=== PATIENT | female | born 1995 | race African-American/Black ===

== ENCOUNTER 2024-10-29 13:42 | Emergency (ER) | payer MEDICAID, OTHER ==
[~2024-10-29] VITALS: Ht 162.6 cm; Wt 100.0 kg
[2024-10-29 14:22] VITALS: TEMP 98.5
--- NOTE | 2024-10-29 14:30 | ED.PDOC ---
Musculoskeletal HPI Comments A 29 YEAR OLD FEMALE PRESENTS TO THE ED WITH CHIEF COMPLAINT OF KNEE PAIN. PATIENT REPORTS THAT SHE HAD ACCIDENTALLY OVER EXTENDED HER LEFT LEG WHEN STEPPING OUT OF A [employer]SPORTATION [employer] TODAY, CAUSING HER TO TWIST HER LEFT LEG. PATIENT RELAYS THAT SHE STARTED TO EXPERIENCE LEFT KNEE PAIN AFTER THIS AND HAS DIFFICULTY WALKING WITHOUT PAIN. PATIENT DENIES ANY NUMBNESS, WEAKNESS, FALL, INJURY, OR FURTHER SYMPTOMS. Chief Complaint: Lower Extremity Time Seen by MD: 14:28 Reviewed Notes: Nurses Notes, Medications, Allergies Allergies: Coded Allergies: NO KNOWN ALLERGIES (Unverified , 10/29/24) Home Meds Active Scripts Ibuprofen (Ibuprofen) 800 Mg Tab, 1 TAB PO TID, #30 TAB Prov:YULIANA MCLAUGHLIN 10/29/24 Information Source: Patient Mode of Arrival: Ambulatory Location: Left Extremity Location: Knee Timing: Hours Prehospital treatment: None Severity: Moderate Able to Move Extremity: Yes Bear Weight: Limited Pain: Moderate Mechanism: Hyperextension Circumstances: Accident Onset of Symptoms: Spontaneous Symptoms: Pain DVT Risk Factors: NONE Last Tetanus: Unknown Associated signs and symptoms: Knee pain Past Medical History PAST MEDICAL HISTORY: Denies Surgical History: Denies all surgeries DOUBLE BOTTOM DRIVER History: No Pertinent DOUBLE BOTTOM DRIVER History Family History Family History: Reviewed,noncontributory to illness Social History Smoker: Non-Smoker Alcohol: Denies ETOH Use Drugs: Denies Drug Use Lives In: Home Constitutional: denies: chills, diaphoresis, fatigue, fever, malaise, sweats, weakness, others EENTM: denies: blurred vision, double vision, ear bleeding, ear discharge, ear drainage, ear pain, ear ringing, eye pain, eye redness, hearing loss, mouth pain, mouth swelling, nasal discharge, nose bleeding, nose congestion, nose pain, photophobia, tearing, throat pain, throat swelling, voice changes, others Respiratory: denies: cough, hemoptysis, orthopnea, SOB at rest, shortness of breath, SOB with excertion, stridor, wheezing, others Cardiovascular: denies: chest pain, dizzy spells, diaphoresis, Dyspnea on exertion, edema, irregular heart beat, left arm pain, lightheadedness, palpitations, PND, syncope, others Gastrointestinal: denies: abdomen distended, abdominal pain, blood streaked bowels, constipated, diarrhea, dysphagia, difficulty swallowing, hematemesis, melena, nausea, poor appetite, poor fluid intake, rectal bleeding, rectal pain, vomiting, others Genitourinary: denies: abnormal vagina bleeding, burning, dyspareunia, dysuria, flank pain, frequency, hematuria, incontinence, pain, , vagina discharge, urgency, others Neurological: denies: dizziness, fainting, headache, left sided numbness, left sided weakness, numbness, paresthesia, pre-existing deficit, right sided numbness, right sided weakness, seizure, speech problems, tingling, tremors, weakness, others Musculoskeletal: reports: others (LEFT KNEE PAIN); denies: back pain, gout, joint pain, joint swelling, muscle pain, muscle stiffness, neck pain Integumetry: denies: bruises, change in color, change in hair/nails, dryness, laceration, lesions, lumps, rash, wounds, others Allergic/Immunocompromised: denies: Difficulty Healing, Frequent Infections, Hives, Itching, others Hematologic/Lymphatic: denies: anemia, blood clots, easy bleeding, easy bruising, swollen glands, others Endocrine: denies: excessive hunger, excessive sweating, excessive thirst, excessive urination, flushing, intolerance to cold, intolerance to heat, unexplained weight gain, unexplained weight loss, others Psychiatric: denies: anxiety, bipolar disorder, depression, hopeless, panic disorder, schizophrenia, sleepless, suicidal, others All Other Systems: Reviewed and Negative Physical Exam General Appearance: No Apparent Distress, Obese HEENT: Normal ENT Inspection, PERRL/EOMI Neck: Full Range of Motion, Non-Tender, Normal, Normal Inspection Respiratory: Chest Non-Tender, Lungs Clear, No Accessory Muscle Use, No Respiratory Distress, Normal Breath Sounds Cardiovascular: No Edema, No JVD, No Murmur, No Gallop, Normal Peripheral Pulses, Regular Rate/Rhythm Breast Exam: Deferred Gastrointestinal: No Organomegaly, Non Tender, No Pulsatile Mass, Normal Bowel Sounds, Soft Genitalia: Deferred Pelvic: Deferred Rectal: Deferred Extremities: Decreased range of motion, No calf tenderness, Normal capillary refill, No pedal edema, Tender (WITH MILD SWELLING ON LEFT KNEE, NO BONY TENDERNESS AND DEFORMITY. 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 Was a procedure done?: No Differential Diagnosis EXT Differential Diagnosis: Sprain, Strain, Bursitis X-Ray, Labs, Meds, VS Vital Signs Date Time Temp Pulse Resp B/P (MAP) Pulse Ox O2 Delivery O2 Flow Rate FiO2 10/29/24 14:39 98.5 99 17 143/85 (104) 100 10/29/24 14:22 98.5 99 17 143/85 (104) 100 98.5 10/29/24 14:22 99 17 100 Room Air X-Ray, Labs, Meds, VS Comment EXTERNAL MEDICAL RECORDS REVIEWED: [NONE] INDEPENDENT HISTORIANS: [NONE] SOCIAL DETERMINANTS OF HEALTH: [NONE] LABS ORDERED: NONE REVIEWED AND INTERPRETED RESULTS: LEFT KNEE XR INTERPRETED BY ME. NO ACUTE FINDINGS. NO FRACTURES OR DISLOCATION. PENDING RADIOLOGIST REPORT. IMAGING ORDERED: LEFT KNEE XR TREATMENTS ORDERED: NORCO 10/325 PO AND CRUTCHES PROCEDURES PERFORMED: NONE CRITICAL CARE TIME: NONE I HAVE DISCUSSED THE PATIENT WITH THE ATTENDING PHYSICIAN DR. VILLAVICENCIO AND HE AGREES WITH THE PATIENT'S PLAN OF CARE AND DISPOSITION. BASED ON HISTORY OF PRESENT ILLNESS, AND PHYSICAL EXAM, PATIENT WILL BE DISCHARGED HOME. DISCUSSED PLAN FOR DISCHARGE HOME WITH RX. MEDICATION WARNINGS GIVEN. SHARED DECISION MAKING: DISCUSSED WITH PATIENT THAT THEIR WORKUP WAS NORMAL. PAT IENT INSTRUCTED TO FOLLOW UP WITH PRIMARY CARE PROVIDER IN 1-2 DAYS FOR RE- EVALUATION OF SYMPTOMS. PATIENT VERBALIZES UNDERSTANDING TO RETURN TO ED FOR NEW OR WORSENING SYMPTOMS OR IF FOLLOW UP WITH PCP CANNOT BE OBTAINED. PATIENT FEELS COMFORTABLE GOING HOME AT THIS TIME. ALL QUESTIONS ADDRESSED AT TIME OF DISCHARGE. Time of 1ST Reevaluation: 15:20 Reevaluation 1ST: Improved Patient Education/Counseling: Diagnosis, Treatment, Need For Follow Up Family Education/Counseling: Diagnosis, Treatment, Need For Follow Up Medical Screening: No EMC Exist At This Time Departure 1 Departure Time of Disposition: 15:20 Impression: Primary Impression: Sprain of left knee Qualified Codes: S83.8X2A - Sprain of other specified parts of left knee, initial encounter Disposition: 01 HOME / SELF CARE / HOMELESS Condition: Stable Additional Instructions: FOLLOW-UP WITH PCP IN 1 TO 2 DAYS. TAKE MEDICATIONS PRESCRIBED. RETURN TO ED FOR ANY NEW OR WORSENING SYMPTOMS. e-Prescriptions Ibuprofen (Ibuprofen) 800 Mg Tab 1 TAB PO TID, #30 TAB Prov: YULIANA MCLAUGHLIN 10/29/24 Discharged With: Self, Relative Critical Care Note Critical Care Time?: No Stability Stability form required: No Heart Score Heart Score: Heart Score Response (Comments) Value History N/A 0 EKG N/A 0 Age N/A 0 Risk Factors N/A 0 Troponin N/A 0 Total 0 I personally scribed for YULIANA MCLAUGHLIN ([email or web address]) on 10/29/24 at 14:30. Electronically submitted by David Sinclair ([email or web address]). I personally scribed for YULIANA MCLAUGHLIN ([email or web address]) on 10/29/24 at 14:53. Electronically submitted by David Sinclair ([email or web address]). YULIANA MCLAUGHLIN Oct 29, 2024 14:30
[2024-10-29 14:39] VITALS: BP 143/85; PULSE 99; RESP 17; O2SAT 100
[2024-10-29] MEDS ORDERED: IBUP-1456 PO (14:58)
--- NOTE | 2024-10-29 15:03 | DVH ---
EXAM: XY L KNEE 3V XRAY CLINICAL INDICATION: TWISTED KNEE TECHNIQUE: XY L KNEE 3V XRAY Comparison: None FINDINGS/IMPRESSION: There is no evidence of acute fracture or dislocation. The visualized joint space is well maintained. The alignment is anatomical. There is no radiopaque foreign body.
[2024-10-29] MEDS: HYDROcodone-ACET 10/325MG TAB PO ONE (15:07)
== END 2024-10-29 15:15 | disposition home or self-care (01) ==
LOC: ER 13:42
DX: S83.92XA Sprain of unspecified site of left knee, initial encounter (principal); Z79.1 Long term (current) use of non-steroidal anti-inflammatories (NSAID); X50.1XXA Overexertion from prolonged static or awkward postures, initial encounter; Y93.89 Activity, other specified; Y92.89 Other specified places as the place of occurrence of the external cause; Y99.8 Other external cause status
CPT/HCPCS: 73562

== ENCOUNTER 2025-08-21 18:29 | Emergency (ER) | payer MEDICAID ==
[~2025-08-21] VITALS: Ht 165.1 cm; Wt 138.4 kg
[~2025-08-21 18:29] MED LIST: IBUP-1456 PO
[2025-08-21 18:35] VITALS: BP 148/102; PULSE 105; RESP 20; TEMP 98.2; O2SAT 100
== END 2025-08-22 02:35 | disposition left against medical advice (07) ==
LOC: ER 18:29
DX: R09.81 Nasal congestion (principal); Z79.899 Other long term (current) drug therapy